=== PATIENT | female | born 1970 | race Caucasian/White ===

== ENCOUNTER 2018-08-31 09:51 | Outpatient (CLI) | payer OTHER ==
[~2018-08-31 09:51] MED LIST: HYDROXYCHLOROQ200 MG BC
== END 2018-08-31 09:59 | disposition home or self-care (01) ==
LOC: MAMO-SONO 09:51
DX: N95.1 Menopausal and female climacteric states (principal); N60.11 Diffuse cystic mastopathy of right breast; N60.12 Diffuse cystic mastopathy of left breast; E78.2 Mixed hyperlipidemia; E03.8 Other specified hypothyroidism; Z12.11 Encounter for screening for malignant neoplasm of colon; Z20.2 Contact with and (suspected) exposure to infections with a predominantly sexual mode of transmission; Z20.828 Contact with and (suspected) exposure to other viral communicable diseases; Z12.31 Encounter for screening mammogram for malignant neoplasm of breast

== ENCOUNTER 2019-10-08 08:55 | Outpatient (CLI) | payer OTHER | END 2019-10-08 09:07 | disposition home or self-care (01) | LOC: MAMO-SONO 08:55 | DX: Z12.31 Encounter for screening mammogram for malignant neoplasm of breast (principal); Z87.898 Personal history of other specified conditions; N64.4 Mastodynia; N60.11 Diffuse cystic mastopathy of right breast; N60.12 Diffuse cystic mastopathy of left breast; I11.9 Hypertensive heart disease without heart failure; Z12.11 Encounter for screening for malignant neoplasm of colon; Z20.828 Contact with and (suspected) exposure to other viral communicable diseases; Z20.2 Contact with and (suspected) exposure to infections with a predominantly sexual mode of transmission; Z20.5 Contact with and (suspected) exposure to viral hepatitis ==

== ENCOUNTER 2020-11-12 09:17 | Outpatient (CLI) | payer OTHER | END 2020-11-12 09:34 | disposition home or self-care (01) | LOC: MAMO-SONO 09:17 | PROVIDERS: ATTEND Obstetrics & Gynecology Gynecology | DX: Z12.11 Encounter for screening for malignant neoplasm of colon (principal); I11.9 Hypertensive heart disease without heart failure; E78.2 Mixed hyperlipidemia; E67.3 Hypervitaminosis D; Z20.828 Contact with and (suspected) exposure to other viral communicable diseases; Z20.89 Contact with and (suspected) exposure to other communicable diseases; N60.11 Diffuse cystic mastopathy of right breast; N60.12 Diffuse cystic mastopathy of left breast ==

== ENCOUNTER 2021-11-03 13:22 | Outpatient (CLI) | payer OTHER | END 2021-11-03 13:23 | disposition home or self-care (01) | LOC: NUCLEAR 13:22 | PROVIDERS: ATTEND Obstetrics & Gynecology Gynecology | DX: M85.89 Other specified disorders of bone density and structure, multiple sites (principal) ==

== ENCOUNTER 2021-11-11 08:48 | Outpatient (CLI) | payer OTHER | END 2021-11-11 09:53 | disposition home or self-care (01) | LOC: LAB 08:48 | DX: E03.8 Other specified hypothyroidism (principal) ==

== ENCOUNTER 2021-11-16 09:20 | Outpatient (CLI) | payer OTHER | END 2021-11-16 09:35 | disposition home or self-care (01) | LOC: MAMO-SONO 09:20 | PROVIDERS: ATTEND Obstetrics & Gynecology Gynecology | DX: E04.2 Nontoxic multinodular goiter (principal); R22.1 Localized swelling, mass and lump, neck; N95.1 Menopausal and female climacteric states; N60.11 Diffuse cystic mastopathy of right breast; N60.12 Diffuse cystic mastopathy of left breast; N85.9 Noninflammatory disorder of uterus, unspecified; M85.89 Other specified disorders of bone density and structure, multiple sites; I10 Essential (primary) hypertension ==

== ENCOUNTER 2021-12-07 08:46 | Outpatient (CLI) | payer OTHER | END 2021-12-07 08:52 | disposition home or self-care (01) | LOC: SONOGRAMA 08:46 | PROVIDERS: ATTEND Pathology Anatomic Pathology & Clinical Pathology | DX: E04.1 Nontoxic single thyroid nodule (principal) ==

== ENCOUNTER 2021-12-31 08:23 | Outpatient (CLI) | payer OTHER | END 2021-12-31 08:41 | disposition home or self-care (01) | LOC: SONOGRAMA 08:23 | PROVIDERS: ATTEND Pathology Anatomic Pathology | DX: E04.2 Nontoxic multinodular goiter (principal); R20.2 Paresthesia of skin ==

== ENCOUNTER 2022-03-08 14:09 | Outpatient (CLI) | payer OTHER | END 2022-03-08 14:19 | disposition home or self-care (01) | LOC: RAD 14:09 | PROVIDERS: ATTEND Surgery | DX: Z01.811 Encounter for preprocedural respiratory examination (principal) ==

== ENCOUNTER → 2022-08-05 | Outpatient (CLI) | payer OTHER | END | disposition home or self-care (01) | LOC: NUCLEAR 08-03 10:00 | PROVIDERS: ATTEND Internal Medicine | DX: I73.9 Peripheral vascular disease, unspecified (principal) ==

== ENCOUNTER → 2022-08-06 | Outpatient (CLI) | payer OTHER | END | disposition home or self-care (01) | LOC: NUCLEAR 08-04 10:00 | PROVIDERS: ATTEND Internal Medicine | DX: I73.9 Peripheral vascular disease, unspecified (principal) ==

== ENCOUNTER 2022-09-16 13:15 | Outpatient (CLI) | payer OTHER | END 2022-09-16 13:24 | disposition home or self-care (01) | LOC: SONOGRAMA 13:15 | PROVIDERS: ATTEND Obstetrics & Gynecology | DX: R19.03 Right lower quadrant abdominal swelling, mass and lump (principal) ==

== ENCOUNTER 2023-01-10 07:52 | Outpatient (CLI) | payer OTHER | END 2023-01-10 10:14 | disposition home or self-care (01) | LOC: RAD 07:52 | PROVIDERS: ATTEND Obstetrics & Gynecology Gynecology | DX: R07.89 Other chest pain (principal) ==

== ENCOUNTER 2023-09-08 08:06 | Outpatient (CLI) | payer OTHER | END 2023-09-08 08:09 | disposition home or self-care (01) | LOC: SONOGRAMA 08:06 | PROVIDERS: ATTEND Thoracic Surgery (Cardiothoracic Vascular Surgery) | DX: M65.30 Trigger finger, unspecified finger (principal); M25.50 Pain in unspecified joint ==

== ENCOUNTER 2025-02-05 13:20 | Outpatient (CLI) | payer OTHER | END 2025-02-05 13:28 | disposition home or self-care (01) | LOC: MAMO-SONO 13:20 | PROVIDERS: ATTEND Internal Medicine | DX: R92.323 Mammographic fibroglandular density, bilateral breasts (principal) ==